=== PATIENT | female | born 1975 | race Caucasian/White ===

== ENCOUNTER → 2023-09-06 07:26 | Outpatient (REF) | payer OTHER, SELFPAY ==
[2023-09-06 10:58] LABS: Folate > 20.0 ng/ml (2.76-20); Vitamin B12 825 pg/ml (239-931)
== END ==
LOC: REG 07:26
PROVIDERS: ATTENDING PHYSICIAN Nurse Practitioner Adult Health
DX: E03.8 Other specified hypothyroidism (principal)
CPT/HCPCS: 36415; 82607; 82746; 84443

== ENCOUNTER → 2023-12-10 11:32 | Outpatient (REF) | payer OTHER, SELFPAY | LOC: RAD 11:32 | PROVIDERS: ATTENDING PHYSICIAN Nurse Practitioner Adult Health | DX: N92.1 Excessive and frequent menstruation with irregular cycle (principal); R61 Generalized hyperhidrosis | CPT/HCPCS: 76830; 76856 ==